=== PATIENT | male | born 1965 | race Hispanic/Latino ===

== ENCOUNTER 2024-11-24 08:20 | Emergency (ER) | payer BC ==
[2024-11-24] MEDS ORDERED: NA CHLORIDE 0.9% 1,000 ML ONE (09:37)
[2024-11-24] MEDS ORDERED: KETOROLAC 30 MG/ML INJ ONE (09:37)
[2024-11-24 10:18] LABS: Absolute Eosinophils 0.1 K/uL (0-0.5); Absolute Lymphocytes (CBC) 1.6 K/uL (0.7-4.9); Absolute Monocytes 0.5 K/uL (0.1-1.3); Basophils % 0.5 % (0-1.3); Eosinophils % 1.8 % (0-4.4); Hematocrit 44.5 % (39.6-49.0); Hemoglobin 15.5 g/dL (13.6-17.9); Lymphocytes % 31.6 % (15.3-44.8); MCH 29.7 pg (27.0-35.0); MCHC 34.8 g/dL (32.0-36.0); MCV 85.5 fL (80-100); MPV 8.5 fL (7.6-11.3); Neutrophils % 57.1 % (41.7-73.7); Platelets 174 thou/uL (152-406); Red Cell Distribution Width 13.3 % (12.1-15.2)
[2024-11-24 10:32] LABS: Albumin 3.4 g/dL (3.4-5.0); Albumin/Globulin Ratio 0.9 (1.1-1.8); Anion Gap 7.8 mEq/L (5.0-15.0); Bilirubin Total 0.7 mg/dL (0.2-1.0); Globulin 3.6 g/dL (2.3-3.5); Potassium 3.8 mEq/L (3.5-5.1)
[2024-11-24 10:54] LABS: Specific Gravity 1.029 (1.005-1.030); Sqamous Epithelial <5 /HPF (None Seen); Urine Bacteria None Seen /HPF (<20); Urine Bilirubin NEGATIVE (Negative); Urine Blood Negative (Negative); Urine Clarity Clear (Clear); Urine Color Light-Yellow (Yellow); Urine Culture Reflex Order NOT NEEDED; Urine Glucose 3+ (Negative); Urine Ketones NEGATIVE (Negative); Urine Microscopic Reflex YN ORDER UMIC; Urine Mucus Slight /HPF (None Seen); Urine Nitrite NEGATIVE (Negative); Urine Protein TRACE (Negative); Urine RBC <5 /HPF (None Seen); Urine Urobilinogen Normal (Normal); Urine WBC <5 /HPF (<5); Urine pH 5.5 (5.0-7.0)
--- NOTE | 2024-11-24 11:38 | RAD REPORT ---
EXAMINATION: CT ABDOMEN AND PELVIS WITH CONTRAST CLINICAL INDICATION: Abdominal pain TECHNIQUE: CT abdomen and pelvis was performed, after the administration of 100 cc Isovue-300.. Sagit jacob and coronal reconstructions were obtained. One or more of the following dose reduction techniques were used: Automated exposure control, adjustment of the mA and kV according to patient si ze, and iterative reconstruction. Unless otherwise specified, incidental findings do not require dedicated imaging follow-up. [id number]. Oral contrast was not given which limits evaluation of bowel and appendix. COMPARISON: .2019 FINDINGS: Fatty liver. Several hepatic cysts. Spleen, pancreas, adrenals and kidneys unremarkable No evidence of diverticulitis. Normal appendix. The prostate gland is moderately enlarged. Stranding is present within the adjacent fat. Cholecystectomy : IMPRESSION: Moderate prostatic enlargement. Stranding within the adjacent fat may indicate inflammation.
--- NOTE | 2024-11-24 12:06 | ER ---
Nurse's Notes [facility] Name: Manpreet Crowder Age: 59 yrs Sex: Male : 1965 Arrival Date: 11/24/2024 Time: 08:20 Bed DX4 Private MD: Diagnosis: Strain of muscle, fascia and tendon of abdomen, initial encounter Presentation: 11/24 08:30 Chief complaint: Patient states: Bent over this morning, sneezed, and felt a pop to L ll1 abdomen. Coronavirus screen: Client denies travel out of the [place] in the last 14 days. At this time, the client does not indicate any symptoms associated with coronavirus-19. Ebola Screen: Patient denies travel to an Ebola-affected area in the 21 days before illness onset. Initial Sepsis Screen: Does the patient meet any 2 criteria? No. Patient's initial sepsis screen is negative. Does the patient have a suspected source of infection? No. Patient's initial sepsis screen is negative. Risk Assessment: Do you want to hurt yourself or someone else? Patient reports no desire to harm self or others. Onset of symptoms was November 24, 2024. 08:30 Method Of Arrival: Ambulatory ll1 08:30 Acuity: REY 3 ll1 Triage Assessment: 11/25 08:30 General: Appears uncomfortable, Behavior is calm, cooperative, appropriate for age. ll1 Pain: Complains of pain in left upper quadrant Quality of pain is described as aching. GI: Reports upper abdominal pain. Historical: - Allergies: 11/24 08:29 Nuts; ll1 - Home Meds: 08:29 valsartan 320 mg Oral tablet daily [Active]; atomoxetine 10 mg Oral capsule 1 cap daily ll1 [Active]; - PMHx: 08:29 Hypertensive disorder; ADD; ll1 08:31 Diabetes mellitus; ll1 - PSHx: 08:29 Cholecystectomy; ll1 - Immunization history:: Adult Immunizations up to date. - Social history:: Smoking status: Patient denies any tobacco usage or history of. Screenin:29 [facility] ED Fall Risk Assessment (Adult) History of falling in the last 3 months, jl7 including since admission No falls in past 3 months (0 pts) Confusion or Disorientation No (0 pts) Intoxicated or Sedated No (0 pts) Impaired Gait No (0 pts) Mobility Assist Device Used No (0 pt) Altered Elimination No (0 pt) Score/Fall Risk Level 0 - 2 = Low Risk Oriented to surroundings, Maintained a safe environment. Abuse screen: Denies threats or abuse. Denies injuries from another. Nutritional screening: No deficits noted. Tuberculosis screening: No symptoms or risk factors identified. Vital Signs: 08:30 BP 176 / 110; Pulse 65; Resp 17; Temp 97.9; Pulse Ox 99% ; Weight 104.33 kg; Height 5 ll1 ft. 8 in. ; Pain 10/10; 12:29 BP 153 / 97; Pulse 67; Resp 15; Pulse Ox 99% ; Pain 1/10; jl7 08:30 Body Mass Index 34.97 (104.33 kg, 172.72 cm) ll1 08:30 Pain Scale: Adult ll1 12:29 Pain Scale: Adult jl7 ED Course: 08:22 Patient arrived in ED. mr 08:26 Demetri Gutierres PA is PHCP. cp 08:26 Prince Be DO is Attending Physician. cp 08:29 Arm band placed on. ll1 08:31 Triage completed. ll1 09:45 Missed attempt(s): 20 gauge Bleeding controlled, band aid applied, catheter tip intact. ty 09:52 Missed attempt(s): 22 gauge Bleeding controlled, band aid applied, catheter tip intact. ty 09:54 Missed attempt(s): 20 gauge Bleeding controlled, band aid applied, catheter tip intact. ty 10:05 No provider procedures requiring assistance completed. kb3 10:05 Inserted saline lock: 18 gauge in left antecubital area, using aseptic technique. Blood ty collected. Flushed with 10 mL NS. 10:52 CT Abd/Pelvis - IV Contrast Only In Process Unspecified. EDMS 12:29 Patient has correct armband on for positive identification. Provided Education on: jl7 discharge. 12:29 IV discontinued, intact, bleeding controlled, No redness/swelling at site. Pressure jl7 dressing applied. Administered Medications: 10:05 Drug: TORadol - Ketorolac IVP 15 mg IVP once Route: IVP; Site: left antecubital; kb3 12:30 Follow up: Response: No adverse reaction; Pain is decreased jl7 10:05 Drug: NS 0.9% IV 1000 ml IV at 1 bolus Per protocol; to be given as a bolus over 60 kb3 minutes Route: IV; Rate: 1 bolus; Site: left antecubital; 12:30 Follow up: Response: No adverse reaction; IV Status: Completed infusion; IV Intake: jl7 1000ml Medication: 12:29 VIS not applicable for this client. jl7 Intake: 12:30 IV: 1000ml; Total: 1000ml. jl7 Outcome: 12:05 Discharge ordered by MD. cleopatra 12:29 Discharged to home ambulatory, Kiesha 12:29 Condition: stable 12:29 Discharge instructions given to patient, Instructed on discharge instructions, follow up and referral plans. medication usage, Demonstrated understanding of instructions, follow-up care, medications, Prescriptions given X 1, 12:31 Patient left the ED. jl7 Signatures: Dispatcher [employer] EDMS Elsa Bonilla, Palmer Reg mr Demetri Gutierres, Ursula Sequeira cp RN RN jl7 Chinyere Pickett RN RN ll1 Chastity Tabares RN RN kb3 Sarkis Pradhan Corrections: (The following items were deleted from the chart) 08:30 08:29 Allergies: No Known Allergies; ll1 ll1 10:34 10:05 Inserted saline lock: 22 gauge in left antecubital area, using aseptic technique. ty Blood collected. Flushed with 10 mL NS kb3
--- NOTE | 2024-11-24 12:06 | EDPHYS ---
Physician Documentation [facility] Name: Manpreet Crowder Age: 59 yrs Sex: Male : 1965 Arrival Date: 11/24/2024 Time: 08:20 Bed DX4 Private MD: ED Physician Prince Be HPI: 11/24 08:33 This 59 yrs old Male presents to ER via Ambulatory with complaints of cp Abdominal Pain. 08:33 The patient presents with abdominal pain in the left upper quadrant. Onset: The cp symptoms/episode began/occurred this morning, pain started after sneezing. The symptoms do not radiate. Associated signs and symptoms: Pertinent negatives: nausea, vomiting, and diarrhea, constipation, fever, shortness of breath. The symptoms are described as like a "real bad cramp". 08:33 Severity of pain: in the emergency department the pain is unchanged despite home cp interventions. Historical: - Allergies: 08:29 Nuts; ll1 - Home Meds: 08:29 valsartan 320 mg Oral tablet daily [Active]; atomoxetine 10 mg Oral capsule 1 cap daily ll1 [Active]; - PMHx: 08:29 Hypertensive disorder; ADD; ll1 08:31 Diabetes mellitus; ll1 - PSHx: 08:29 Cholecystectomy; ll1 - Immunization history:: Adult Immunizations up to date. - Social history:: Smoking status: Patient denies any tobacco usage or history of. ROS: 08:40 Abdomen/GI: Positive for abdominal pain, cp 08:40 Eyes: Negative for injury, pain, redness, and discharge, cp 08:40 Constitutional: Negative for body aches, chills, fever, poor PO intake, 08:40 ENT: Negative for drainage from ear(s), ear pain, sore throat, difficulty swallowing, difficulty handling secretions, 08:40 Cardiovascular: Negative for chest pain, edema, palpitations, 08:40 Respiratory: Negative for cough, shortness of breath, wheezing, 08:40 Back: Negative for pain at rest, pain with movement, 08:40 All other systems are negative, Exam: 08:45 Constitutional: The patient appears in no acute distress, alert, awake, non-toxic, well cp developed, well nourished, 08:45 Head/Face: Normocephalic, atraumatic. cp 08:45 Eyes: Periorbital structures: appear normal, Conjunctiva: normal, no exudate, no injection, Sclera: no appreciated abnormality, Lids and lashes: appear normal, bilaterally, 08:45 ENT: External ear(s): are unremarkable, Nose: is normal, Mouth: Lips: moist, Oral mucosa: moist, Posterior pharynx: Airway: no evidence of obstruction, patent, 08:45 Chest/axilla: Inspection: normal, 08:45 Cardiovascular: Rate: normal, Rhythm: regular, 08:45 Respiratory: the patient does not display signs of respiratory distress, Respirations: normal, no use of accessory muscles, no retractions, labored breathing, is not present, Breath sounds: are clear throughout, no decreased breath sounds, no stridor, no wheezing, 08:45 Abdomen/GI: Inspection: abdomen appears normal, Bowel sounds: active, all quadrants, Palpation: soft, in all quadrants, moderate abdominal tenderness, in the left upper quadrant, rebound tenderness, is not appreciated, involuntary guarding, is not appreciated, 08:45 Back: pain, is absent, ROM is normal, Vital Signs: 08:30 BP 176 / 110; Pulse 65; Resp 17; Temp 97.9; Pulse Ox 99% ; Weight 104.33 kg; Height 5 ll1 ft. 8 in. ; Pain 10/10; 12:29 BP 153 / 97; Pulse 67; Resp 15; Pulse Ox 99% ; Pain 1/10; jl7 08:30 Body Mass Index 34.97 (104.33 kg, 172.72 cm) ll1 08:30 Pain Scale: Adult ll1 12:29 Pain Scale: Adult jl7 MDM: 08:26 Medical Screening Exam initiated cp 09:00 Differential diagnosis: diverticulitis, pancreatitis, Pyelonephritis, Ureterolithiasis, cp urinary tract infection, strain abdominal muscle, hernia. 12:05 Data reviewed: vital signs, nurses notes, lab test result(s), radiologic studies, CT cp scan, and as a result, I will discharge patient. 12:05 I considered the following discharge prescriptions or medication management in the emergency department Medications were administered in the Emergency Department. See MAR. Counseling: I had a detailed discussion with the patient and/or guardian regarding the historical points, exam findings, and any diagnostic results supporting the discharge/admit diagnosis, lab results, radiology results, to return to the emergency department if symptoms worsen or persist or if there are any questions or concerns that arise at home. Response to treatment: the patient's symptoms have markedly improved after treatment, and as a result, I will discharge patient. Special discussion: Based on the patient's Hx, exam, and Dx evaluation, there is no indication for emergent surgery or inpatient Tx. It is understood by the patient/guardian that if the Sx's persist or worsen they need to return immediately for re-evaluation. 11/24 08:35 Order name: CBC with Diff; Complete Time: 10:59 cp 11/24 08:35 Order name: CMP; Complete Time: 10:59 cp 11/24 10:59 Interpretation: Normal except: GLUC 167; GFR 85; ALT 75; GLOB 3.6; A/G 0.9. cp 11/24 08:35 Order name: Lipase; Complete Time: 10:59 cp 11/24 08:35 Order name: Urinalysis w/ reflexes; Complete Time: 10:59 cp 11/24 10:59 Interpretation: Normal except: UGLUC 3+; UPROT TRACE. cp 11/24 08:35 Order name: CT Abd/Pelvis - IV Contrast Only; Complete Time: 11:57 cp 11/24 11:58 Interpretation: Report reviewed. cp 11/24 08:35 Order name: IV Saline Lock; Complete Time: 10:10 cp 11/24 08:35 Order name: Labs collected and sent; Complete Time: 10:10 cp Administered Medications: 10:05 Drug: TORadol - Ketorolac IVP 15 mg IVP once Route: IVP; Site: left antecubital; kb3 12:30 Follow up: Response: No adverse reaction; Pain is decreased jl7 10:05 Drug: NS 0.9% IV 1000 ml IV at 1 bolus Per protocol; to be given as a bolus over 60 kb3 minutes Route: IV; Rate: 1 bolus; Site: left antecubital; 12:30 Follow up: Response: No adverse reaction; IV Status: Completed infusion; IV Intake: jl7 1000ml Disposition: 14:46 I was immediately available on-site in the Emergency Department for consultation in the ri3 care of the patient. Disposition Summary: 11/24/24 12:05 Discharge Ordered Notes: Location: Home cp Problem: new cp Symptoms: have improved cp Condition: Stable cp Diagnosis - Strain of muscle, fascia and tendon of abdomen, initial encounter cp Followup: cp - With: Private Physician - When: 2 - 3 days - Reason: Recheck today's complaints Discharge Instructions: - Discharge Summary Sheet cp - Muscle Strain cp Forms: - Medication Reconciliation Form cp - Antibiotic Education cp - Prescription Opioid Use cp - Patient Portal Instructions cp - Leadership Thank You Letter cp - Work release form ll1 Prescriptions: - Anaprox DS 550 mg Oral Tablet - take 1 tablet ORAL route every 12 hours As needed; 20 tablet; Refills: 0, cp Product Selection Permitted Signatures: Dispatcher [employer] EDMS Demetri Gutierres PA PA cp Chinyere Pickett RN RN ll1 Prince Be DO DO ms3 Chastity Tabares, JENNIFER RN kb3 Ursula Shah RN jl7 Corrections: (The following items were deleted from the chart) 08:30 08:29 Allergies: No Known Allergies; ll1 ll1
[2024-11-24 12:37] VITALS: TEMP 97.9; O2SAT 99
[2024-11-24 12:38] VITALS: BP 153/97
== END 2024-11-24 12:31 | disposition home or self-care (01) ==
LOC: ER 08:20
DX: S39.011A Strain of muscle, fascia and tendon of abdomen, initial encounter (principal)
CPT/HCPCS: 85025; 81001; 36415; 83690; 80053; 74177; Q9967; J7030